=== PATIENT | male | born 1980 | race Caucasian/White ===

== ENCOUNTER 2018-11-21 11:50 | Emergency (ER) | payer OTHER ==
[2018-11-21] MEDS: LIDOCAINE 1% (MPF) 5 ML VIAL INJ (13:45)
[2018-11-21] MEDS: LIDOCAINE 1% (MDV) 10 ML INJ INJ (13:45)
[2018-11-21] MEDS: IBUPROFEN 600 MG TAB PO (13:47)
[2018-11-21] MEDS: CEPHALEXIN 500 MG CAP PO (13:47)
== END 2018-11-21 15:54 | disposition home or self-care (01) ==
LOC: E/R 11:50
DX: L03.011 Cellulitis of right finger (principal); R40.2252 Coma scale, best verbal response, oriented, at arrival to emergency department; R40.2362 Coma scale, best motor response, obeys commands, at arrival to emergency department; R40.2142 Coma scale, eyes open, spontaneous, at arrival to emergency department; Z87.891 Personal history of nicotine dependence
CPT/HCPCS: 10060; 99283-25

== ENCOUNTER 2018-11-23 11:55 | Emergency (ER) | payer OTHER ==
[2018-11-23] MEDS: DEXAMETHASONE 10 MG/ML 1 ML INJ IV (13:06)
[2018-11-23] MEDS: SOD CHLORIDE 0.9% 500 ML IV (13:07)
[2018-11-23] MEDS: CEFAZOLIN 2 GM/50 ML (PMX) 50 ML IVPB (13:19)
[2018-11-23] MEDS: LORAZEPAM 1 MG TAB PO (13:19)
== END 2018-11-23 15:11 | disposition home or self-care (01) ==
LOC: FTE 11:55
DX: L03.011 Cellulitis of right finger (principal); F17.210 Nicotine dependence, cigarettes, uncomplicated
CPT/HCPCS: 26010; 73140; 96365; 96375; 99284-25

== ENCOUNTER 2019-04-23 20:37 | Inpatient (IN) | payer OTHER ==
[2019-04-23] MEDS ORDERED: PANTOPRAZOLE IV 80 MG in SOD CHLORIDE 0.9% 100 ML IVPB (22:30)
[2019-04-23] MEDS ORDERED: PANTOPRAZOLE IV 80 MG in SOD CHLORIDE 0.9% 100 ML IV (22:30)
[2019-04-23 23:03] LABS: ABNORMAL IP MESSAGE 1; HEMATOCRIT 30.9 % (42.0-52.0); HEMOGLOBIN 10.4 g/dl (14.0-18.0); MEAN CORPUSCULAR HEMOGLOBIN 32.2 pg (29.0-33.0); MEAN CORPUSCULAR HGB CONC 33.7 g/dl (32.0-37.0); MEAN CORPUSCULAR VOLUME 95.7 fl (82.0-101.0); MEAN PLATELET VOLUME 11.2 fl (7.4-10.4); PLATELET COUNT 83 10^3/UL (140-415); POSITIVE DIFF @See below; RED BLOOD COUNT 3.23 10^6/ul (4.70-6.10); RED CELL DISTRIBUTION WIDTH 13.4 % (11.5-14.5)
[2019-04-23 23:03] LABS: WHITE BLOOD COUNT 7.3 10^3/ul (4.8-10.8)
[2019-04-23 23:05] LABS: ADD MAN DIFF? YES
[2019-04-23 23:21] LABS: INR 0.97
[2019-04-23 23:22] LABS: ALANINE AMINOTRANSFERASE 46 IU/L (13-69); ALBUMIN 4.9 g/dl (3.3-4.9); ALBUMIN/GLOBULIN RATIO 1.63; ALKALINE PHOSPHATASE 78 IU/L (42-121); ANION GAP 10 (5-13); ASPARTATE AMINO TRANSFERASE 62 IU/L (15-46); BILIRUBIN,INDIRECT 1.1 mg/dl (0-1.1); BILIRUBIN,TOTAL 1.1 mg/dl (0.2-1.3); BLOOD UREA NITROGEN 20 mg/dl (7-20); CALCIUM 9.9 mg/dl (8.4-10.2); CARBON DIOXIDE 32 mmol/L (21-31); CHLORIDE 95 mmol/L (97-110); CREATININE 0.71 mg/dl (0.61-1.24); Estimated GFR > 60 mL/min (>60); GLUCOSE 116 mg/dl (70-220); POTASSIUM 3.5 mmol/L (3.5-5.1); SODIUM 137 mmol/L (135-144); TOTAL PROTEIN 7.9 g/dl (6.1-8.1)
[2019-04-23 23:33] LABS: TROPONIN-I < 0.012 ng/ml (0.000-0.120)
[2019-04-23] MEDS: SOD CHLORIDE 0.9% 1,000 ML IV (23:54)
[2019-04-23] MEDS: FAMOTIDINE IV 40 MG in SOD CHLORIDE 0.9% 250 ML IV (23:55)
[2019-04-23] MEDS: OCTREOTIDE 50 MCG in SOD CHLORIDE 0.9% 25 ML IVPB (23:55)
[2019-04-23] MEDS: OCTREOTIDE 500 MCG in SOD CHLORIDE 0.9% 49 ML IV (23:55)
[2019-04-24] LABS: BASOPHILS % (M) 2 % (0-2); LYMPHOCYTES #M 1.5 10^3/ul (0.8-2.9); LYMPHOCYTES % (M) 21 % (15-51); MONOCYTE #M 0.5 10^3/ul (0.3-0.9); MONOCYTES % (M) 8 % (0-11); SEGMENTED NEUTROPHILS (M) % 69 % (39-77)
[2019-04-24] MEDS ORDERED: DOCUSATE SODIUM 100 MG CAP PO
[2019-04-24] MEDS ORDERED: NACL 0.9% 3 ML SYG IV
[2019-04-24] MEDS ORDERED: BISACODYL (EC) 5 MG TAB PO
[2019-04-24 00:01] LABS: BASOPHIL #M 0.1 10^3/ul (0.0-0.0); GIANT THROMBO% (M) 4 % (0-0); HYPOCHROMASIA 1+ (0-0); PLATELET ESTIMATE DECREASED
[2019-04-24] MEDS: ONDANSETRON 4 MG INJ IV (00:26)
[2019-04-24] MEDS: CEFTRIAXONE 1 GM/50 ML (PMX) 50 ML IVPB (00:29)
[2019-04-24] MEDS ORDERED: PANTOPRAZOLE IV 80 MG in SOD CHLORIDE 0.9% 100 ML IV (00:30)
[2019-04-24 01:23] LABS: ETHANOL < 10.0 mg/dl (0-0)
[2019-04-24 02:51] LABS: ADD MAN DIFF? NO
[2019-04-24 02:55] LABS: ABNORMAL IP MESSAGE 1; BASOPHILS % 0.3 % (0.0-2.0); HEMOGLOBIN 9.6 g/dl (14.0-18.0); LYMPHOCYTES # 0.8 10^3/ul (0.8-2.9); LYMPHOCYTES % 13.9 % (15.0-51.0); MEAN CORPUSCULAR HEMOGLOBIN 31.9 pg (29.0-33.0); MEAN CORPUSCULAR HGB CONC 33.1 g/dl (32.0-37.0); MEAN CORPUSCULAR VOLUME 96.3 fl (82.0-101.0); MEAN PLATELET VOLUME 10.9 fl (7.4-10.4); MONOCYTE # 0.7 10^3/ul (0.3-0.9); MONOCYTES % 11.8 % (0.0-11.0); NEUTROPHIL # 4.2 10^3/ul (1.6-7.5); NEUTROPHILS % 73.7 % (39.0-77.0); POSITIVE DIFF @See below; RED BLOOD COUNT 3.01 10^6/ul (4.70-6.10); RED CELL DISTRIBUTION WIDTH 13.6 % (11.5-14.5)
[2019-04-24 02:55] LABS: WHITE BLOOD COUNT 5.7 10^3/ul (4.8-10.8)
[2019-04-24 03:01] LABS: PLATELET COUNT 70 10^3/UL (140-415)
[2019-04-24] MEDS: ACETAMINOPHEN 325 MG TAB PO (03:40)
[2019-04-24] MEDS: SOD CHLORIDE 0.9% 1,000 ML IV ×2 (03:47→13:16)
[2019-04-24] MEDS ORDERED: LORAZEPAM 2 MG INJ IV ×2 (05:00→14:30)
[2019-04-24] MEDS: OCTREOTIDE 1 MG in DEXTROSE 5% 95 ML IV ×2 (06:25→20:30)
[2019-04-24 07:26] LABS: HEMOGLOBIN A1C 5.6 % (0-5.9)
[2019-04-24 07:29] LABS: HDL CHOLESTEROL 90 mg/dl (27-67); LDL CHOLESTEROL,CALCULATED 80 mg/dl; TRIGLYCERIDES 80 mg/dl (0-149)
[2019-04-24 07:29] LABS: CHOLESTEROL 186 mg/dl (100-200)
[2019-04-24] MEDS: CHLORDIAZEPOXIDE 25 MG CAP PO ×4 (07:29→21:58)
[2019-04-24 08:00] LABS: THYROID STIMULATING HORMONE 0.389 MIU/L (0.465-4.680)
[2019-04-24] MEDS: MULTIVITAMINS 10 ML, THIAMINE 100 MG, FOLIC ACID 1 MG in SOD CHLORIDE 0.9% 1,000 ML IVPB (09:10)
[2019-04-24 09:48] LABS: ADD MAN DIFF? NO
[2019-04-24 09:50] LABS: WHITE BLOOD COUNT 5.7 10^3/ul (4.8-10.8)
[2019-04-24 09:50] LABS: ABNORMAL IP MESSAGE 1; BASOPHILS % 0.5 % (0.0-2.0); EOSINOPHILS % 0.7 % (0.0-7.0); HEMATOCRIT 30.1 % (42.0-52.0); HEMOGLOBIN 9.9 g/dl (14.0-18.0); LYMPHOCYTES # 1.2 10^3/ul (0.8-2.9); LYMPHOCYTES % 20.2 % (15.0-51.0); MEAN CORPUSCULAR HGB CONC 32.9 g/dl (32.0-37.0); MEAN CORPUSCULAR VOLUME 97.4 fl (82.0-101.0); MEAN PLATELET VOLUME 11.4 fl (7.4-10.4); MONOCYTE # 0.7 10^3/ul (0.3-0.9); MONOCYTES % 12.5 % (0.0-11.0); NEUTROPHIL # 3.8 10^3/ul (1.6-7.5); NEUTROPHILS % 65.7 % (39.0-77.0); PLATELET COUNT 73 10^3/UL (140-415); POSITIVE DIFF @See below; RED BLOOD COUNT 3.09 10^6/ul (4.70-6.10); RED CELL DISTRIBUTION WIDTH 13.4 % (11.5-14.5)
[2019-04-24 12:24] LABS: HEPATITIS B SURFACE ANTIGEN NEGATIVE (NEGATIVE)
[2019-04-24 12:41] LABS: HEPATITIS B SURFACE ANTIBODY NEGATIVE (NEGATIVE)
[2019-04-24 12:42] LABS: HEPATITIS B CORE ANTIBODY NEGATIVE (NEGATIVE); HEPATITIS C VIRAL ANTIBODY NEGATIVE (NEGATIVE)
[2019-04-24 15:01] LABS: ADD MAN DIFF? NO
[2019-04-24 15:02] LABS: ABNORMAL IP MESSAGE 1; BASOPHILS % 0.8 % (0.0-2.0); EOSINOPHILS # 0.1 10^3/ul (0.0-0.5); EOSINOPHILS % 1.4 % (0.0-7.0); HEMATOCRIT 31.4 % (42.0-52.0); HEMOGLOBIN 10.3 g/dl (14.0-18.0); LYMPHOCYTES # 1.2 10^3/ul (0.8-2.9); LYMPHOCYTES % 23.8 % (15.0-51.0); MEAN CORPUSCULAR HGB CONC 32.8 g/dl (32.0-37.0); MEAN CORPUSCULAR VOLUME 97.5 fl (82.0-101.0); MONOCYTE # 0.6 10^3/ul (0.3-0.9); MONOCYTES % 11.2 % (0.0-11.0); NEUTROPHIL # 3.1 10^3/ul (1.6-7.5); NEUTROPHILS % 62.4 % (39.0-77.0); PLATELET COUNT 69 10^3/UL (140-415); POSITIVE DIFF @See below; RED BLOOD COUNT 3.22 10^6/ul (4.70-6.10); RED CELL DISTRIBUTION WIDTH 13.2 % (11.5-14.5)
[2019-04-24 15:09] LABS: FREE T4 (FREE THYROXINE) 0.59 ng/dl (0.64-1.79)
[2019-04-24] MEDS: PROPOFOL 20 ML (15:54)
[2019-04-24] MEDS: FENTAnyl 50 MCG/ML VIAL (15:54)
[2019-04-24] MEDS ORDERED: ONDANSETRON 4 MG INJ IV ×2 (16:00)
[2019-04-24] MEDS: METOCLOPRAMIDE 10 MG INJ IV (18:59)
[2019-04-24] MEDS: PANTOPRAZOLE (EC) 40 MG TAB PO (18:59)
[2019-04-24 21:55] LABS: ADD MAN DIFF? NO
[2019-04-24 21:56] LABS: WHITE BLOOD COUNT 5.8 10^3/ul (4.8-10.8)
[2019-04-24 21:56] LABS: ABNORMAL IP MESSAGE 1; BASOPHILS % 0.7 % (0.0-2.0); EOSINOPHILS # 0.1 10^3/ul (0.0-0.5); EOSINOPHILS % 1.9 % (0.0-7.0); HEMATOCRIT 29.7 % (42.0-52.0); HEMOGLOBIN 9.9 g/dl (14.0-18.0); LYMPHOCYTES # 1.7 10^3/ul (0.8-2.9); LYMPHOCYTES % 28.4 % (15.0-51.0); MEAN CORPUSCULAR HEMOGLOBIN 32.6 pg (29.0-33.0); MEAN CORPUSCULAR HGB CONC 33.3 g/dl (32.0-37.0); MEAN CORPUSCULAR VOLUME 97.7 fl (82.0-101.0); MEAN PLATELET VOLUME 11.8 fl (7.4-10.4); MONOCYTE # 0.6 10^3/ul (0.3-0.9); MONOCYTES % 9.6 % (0.0-11.0); NEUTROPHIL # 3.4 10^3/ul (1.6-7.5); NEUTROPHILS % 59.1 % (39.0-77.0); PLATELET COUNT 64 10^3/UL (140-415); POSITIVE DIFF @See below; RED BLOOD COUNT 3.04 10^6/ul (4.70-6.10); RED CELL DISTRIBUTION WIDTH 13.2 % (11.5-14.5)
[2019-04-24] MEDS: FAMOTIDINE IV 40 MG in SOD CHLORIDE 0.9% 250 ML IV (21:58)
[2019-04-25] MEDS: METOCLOPRAMIDE 10 MG INJ IV ×2 (00:05→05:37)
[2019-04-25] MEDS: SOD CHLORIDE 0.9% 1,000 ML IV (02:36)
[2019-04-25] MEDS: PANTOPRAZOLE (EC) 40 MG TAB PO ×2 (05:37→17:39)
[2019-04-25 07:08] LABS: ANION GAP 8 (5-13); BLOOD UREA NITROGEN 11 mg/dl (7-20); CALCIUM 8.4 mg/dl (8.4-10.2); CARBON DIOXIDE 27 mmol/L (21-31); CREATININE 0.62 mg/dl (0.61-1.24); Estimated GFR > 60 mL/min (>60); GLUCOSE 112 mg/dl (70-220); POTASSIUM 3.4 mmol/L (3.5-5.1); SODIUM 138 mmol/L (135-144)
[2019-04-25 07:38] LABS: CHLORIDE 103 mmol/L (97-110)
[2019-04-25] MEDS: CHLORDIAZEPOXIDE 25 MG CAP PO ×4 (08:38→20:22)
[2019-04-25] MEDS: MULTIVITAMINS 10 ML, THIAMINE 100 MG, FOLIC ACID 1 MG in SOD CHLORIDE 0.9% 1,000 ML IVPB (08:44)
[2019-04-25] MEDS: POTASSIUM CHLORIDE (SR) 20 MEQ TAB PO (12:46)
[2019-04-25] MEDS: NICOTINE (7 MG/24 HR) PATCH TRANSDERM (12:46)
[2019-04-25] MEDS ORDERED: METOCLOPRAMIDE 10 MG INJ IV (13:00)
[2019-04-25 13:41] LABS: ADD UMIC NO; UR ASCORBIC ACID NEGATIVE (NEGATIVE); UR BILIRUBIN (Dip) NEGATIVE (NEGATIVE); UR BLOOD (Dip) NEGATIVE (NEGATIVE); UR CLARITY CLEAR (CLEAR); UR COLOR YELLOW (YELLOW); UR GLUCOSE (Dip) 1+ mg/dL (NEGATIVE); UR KETONES (Dip) NEGATIVE (NEGATIVE); UR LEUKOCYTE ESTERASE (Dip) NEGATIVE Leu/ul (NEGATIVE); UR NITRITE (Dip) NEGATIVE (NEGATIVE); UR SPECIFIC GRAVITY (Dip) 1.006 (1.003-1.030); UR TOTAL PROTEIN (Dip) NEGATIVE (NEGATIVE); UR UROBILINOGEN (Dip) NEGATIVE (NEGATIVE)
[2019-04-25 14:37] LABS: ABNORMAL IP MESSAGE 1; ADD MAN DIFF? NO; BASOPHILS % 0.8 % (0.0-2.0); EOSINOPHILS # 0.1 10^3/ul (0.0-0.5); EOSINOPHILS % 2.3 % (0.0-7.0); HEMATOCRIT 29.5 % (42.0-52.0); HEMOGLOBIN 9.9 g/dl (14.0-18.0); LYMPHOCYTES # 1.3 10^3/ul (0.8-2.9); LYMPHOCYTES % 25.1 % (15.0-51.0); MEAN CORPUSCULAR HEMOGLOBIN 32.5 pg (29.0-33.0); MEAN CORPUSCULAR HGB CONC 33.6 g/dl (32.0-37.0); MEAN CORPUSCULAR VOLUME 96.7 fl (82.0-101.0); MEAN PLATELET VOLUME 11.3 fl (7.4-10.4); MONOCYTE # 0.6 10^3/ul (0.3-0.9); MONOCYTES % 12.3 % (0.0-11.0); NEUTROPHIL # 3.1 10^3/ul (1.6-7.5); NEUTROPHILS % 59.3 % (39.0-77.0); PLATELET COUNT 76 10^3/UL (140-415); POSITIVE DIFF @See below; RED BLOOD COUNT 3.05 10^6/ul (4.70-6.10)
[2019-04-25 14:37] LABS: WHITE BLOOD COUNT 5.2 10^3/ul (4.8-10.8)
[2019-04-26 06:20] LABS: ADD MAN DIFF? NO
[2019-04-26 06:28] LABS: ABNORMAL IP MESSAGE 1; BASOPHILS % 0.6 % (0.0-2.0); EOSINOPHILS # 0.2 10^3/ul (0.0-0.5); EOSINOPHILS % 3.4 % (0.0-7.0); HEMATOCRIT 31.2 % (42.0-52.0); HEMOGLOBIN 10.2 g/dl (14.0-18.0); LYMPHOCYTES # 1.6 10^3/ul (0.8-2.9); MEAN CORPUSCULAR HEMOGLOBIN 32.3 pg (29.0-33.0); MEAN CORPUSCULAR HGB CONC 32.7 g/dl (32.0-37.0); MEAN CORPUSCULAR VOLUME 98.7 fl (82.0-101.0); MEAN PLATELET VOLUME 11.6 fl (7.4-10.4); MONOCYTE # 0.7 10^3/ul (0.3-0.9); NEUTROPHIL # 2.7 10^3/ul (1.6-7.5); NEUTROPHILS % 51.4 % (39.0-77.0); PLATELET COUNT 84 10^3/UL (140-415); POSITIVE DIFF @See below; RED BLOOD COUNT 3.16 10^6/ul (4.70-6.10); RED CELL DISTRIBUTION WIDTH 12.9 % (11.5-14.5)
[2019-04-26 06:28] LABS: WHITE BLOOD COUNT 5.3 10^3/ul (4.8-10.8)
[2019-04-26] MEDS: PANTOPRAZOLE (EC) 40 MG TAB PO (06:44)
[2019-04-26 06:57] LABS: ANION GAP 9 (5-13); BLOOD UREA NITROGEN 8 mg/dl (7-20); CARBON DIOXIDE 25 mmol/L (21-31); CHLORIDE 107 mmol/L (97-110); CREATININE 0.58 mg/dl (0.61-1.24); Estimated GFR > 60 mL/min (>60); GLUCOSE 108 mg/dl (70-220); POTASSIUM 3.3 mmol/L (3.5-5.1); SODIUM 141 mmol/L (135-144)
[2019-04-26] MEDS: NICOTINE (7 MG/24 HR) PATCH TRANSDERM (08:23)
[2019-04-26] MEDS: CHLORDIAZEPOXIDE 25 MG CAP PO ×2 (08:23→12:50)
[2019-04-26] MEDS: MULTIVITAMINS 10 ML, THIAMINE 100 MG, FOLIC ACID 1 MG in SOD CHLORIDE 0.9% 1,000 ML IVPB (08:23)
[2019-04-26] MEDS: POTASSIUM CHLORIDE (SR) 20 MEQ TAB PO (12:52)
== END 2019-04-26 14:55 | disposition home or self-care (01) | DRG 370 ==
LOC: TEL 04-24 00:09 → E/R 20:37 → TEL 04-24 02:36
PROVIDERS: Family Medicine
PROC: 0DB68ZX Excision of Stomach, Via Natural or Artificial Opening Endoscopic, Diagnostic (ICD-10-PCS; principal; 2019-04-24 15:30)
DX: K22.6 Gastro-esophageal laceration-hemorrhage syndrome (principal); F10.10 Alcohol abuse, uncomplicated; K76.0 Fatty (change of) liver, not elsewhere classified; K92.1 Melena; D64.9 Anemia, unspecified; F17.200 Nicotine dependence, unspecified, uncomplicated; D69.6 Thrombocytopenia, unspecified; Y90.0 Blood alcohol level of less than 20 mg/100 ml; K29.70 Gastritis, unspecified, without bleeding; K20.9 Esophagitis, unspecified
CPT/HCPCS: 36415; 71045; 76705; 80048; 80053; 80061; 80307; 81003; 83036; 84439; 84443; 84484; 85025; 85610; 85730; 86704; 86706; 86803; 86850; 86900; 86901; 87340; 88305; 88312; 93005; 96374; 96375; 97116; 97161; 97530; 99285-25